=== PATIENT | male | born 1950 | race Caucasian/White ===

== ENCOUNTER → 2018-01-07 10:16 | Outpatient (CLI) | payer MEDICARE, OTHER, SELFPAY ==
[2018-01-07 12:47] LABS: Vitamin B12 763 pg/mL (211-911)
[2018-01-07 12:52] LABS: ALB/GLOB Ratio 1.2 RATIO (0.9-2.4); AST(SGOT) 25 U/L (15-37); Alanine Aminotransfer ALT/SGPT 57 U/L (16-61); Alkaline Phosphatase 71 U/L (45-117); Anion Gap 7 (5-15); BUN 18 mg/dL (7-18); BUN/Creat Ratio 15.7 RATIO (10-20); Chloride 102 mmol/L (98-107); Cholesterol 136 mg/dL (200); Creatinine, Serum 1.15 mg/dL (0.70-1.30); EST Glomerular Filtration Rate 68 mL/min (>60); Est Glom Filt Rate - Afr Amer 82 mL/min (>60); Ferritin 52 ng/mL (26-388); Globulin 3.4 g/dL (2.2-4.2); Glucose 114 mg/dL (74-106); High Density Lipoprotein 55 mg/dL; Potassium 4.1 mmol/L (3.5-5.1); Protein, Total 7.4 g/dL (6.4-8.2); Sodium Level 139 mmol/L (136-145); Thyroid Stim Hormone (TSH) 2.23 uIU/mL (0.358-3.74); Triglycerides 64 mg/dL; Very Low Density Lipoprotein 13 mg/dL (5-40)
== END ==
PROVIDERS: Visit Provider Internal Medicine Endocrinology, Diabetes & Metabolism
DX: E03.8 Other specified hypothyroidism (principal); E61.1 Iron deficiency; E78.2 Mixed hyperlipidemia; D51.3 Other dietary vitamin B12 deficiency anemia
CPT/HCPCS: 36415; 80053; 80061; 82607; 82728; 84443

== ENCOUNTER → 2018-07-23 08:51 | Outpatient (CLI) | payer MEDICARE, OTHER, SELFPAY ==
[2018-07-23 10:25] LABS: ALB/GLOB Ratio 1.3 RATIO (0.9-2.4); AST(SGOT) 26 U/L (15-37); Alanine Aminotransfer ALT/SGPT 56 U/L (16-61); Albumin, Serum 3.8 g/dL (3.2-5.0); Alkaline Phosphatase 59 U/L (45-117); Anion Gap 9 (5-15); BUN 18 mg/dL (7-18); BUN/Creat Ratio 14.3 RATIO (10-20); Calcium,Total 8.8 mg/dL (8.5-10.1); Chloride 105 mmol/L (98-107); Cholesterol 123 mg/dL (200); Creatinine, Serum 1.26 mg/dL (0.70-1.30); EST Glomerular Filtration Rate 61 mL/min (>60); Est Glom Filt Rate - Afr Amer 74 mL/min (>60); Glucose 115 mg/dL (74-106); High Density Lipoprotein 46 mg/dL; Potassium 4.2 mmol/L (3.5-5.1); Protein, Total 6.8 g/dL (6.4-8.2); Sodium Level 141 mmol/L (136-145); Thyroid Stim Hormone (TSH) 1.59 uIU/mL (0.358-3.74); Triglycerides 87 mg/dL; Very Low Density Lipoprotein 17 mg/dL (5-40)
[2018-07-24 08:38] LABS: Vitamin D,25 Hydroxy 29.6 ng/mL (29.95-100.01)
== END ==
PROVIDERS: Visit Provider Internal Medicine Endocrinology, Diabetes & Metabolism
DX: E03.8 Other specified hypothyroidism (principal); E55.9 Vitamin D deficiency, unspecified; E78.2 Mixed hyperlipidemia
CPT/HCPCS: 36415; 80053; 80061; 82306; 84443

== ENCOUNTER → 2018-08-08 10:00 | Outpatient (CLI) | payer MEDICARE, OTHER, SELFPAY ==
[2018-08-08 12:10] LABS: Magnesium 2.2 mg/dL (1.6-2.6)
[2018-08-08 12:24] LABS: Vitamin B12 809 pg/mL (211-911)
== END ==
PROVIDERS: Visit Provider Internal Medicine Endocrinology, Diabetes & Metabolism
DX: E83.42 Hypomagnesemia (principal); D51.3 Other dietary vitamin B12 deficiency anemia
CPT/HCPCS: 36415; 82607; 83735

== ENCOUNTER → 2018-12-05 08:40 | Outpatient (CLI) | payer MEDICARE, OTHER, SELFPAY ==
[2018-12-05 10:20] LABS: Vitamin B12 746 pg/mL (211-911); Vitamin D,25 Hydroxy 32.2 ng/mL (29.95-100.01)
[2018-12-05 10:31] LABS: ALB/GLOB Ratio 1.4 RATIO (0.9-2.4); AST(SGOT) 31 U/L (15-37); Alanine Aminotransfer ALT/SGPT 72 U/L (16-61); Albumin, Serum 4.1 g/dL (3.2-5.0); Alkaline Phosphatase 69 U/L (45-117); Anion Gap 8 (5-15); BUN 23 mg/dL (7-18); BUN/Creat Ratio 17.8 RATIO (10-20); Calcium,Total 9.1 mg/dL (8.5-10.1); Chloride 104 mmol/L (98-107); Creatinine, Serum 1.29 mg/dL (0.70-1.30); EST Glomerular Filtration Rate 59 mL/min (>60); Est Glom Filt Rate - Afr Amer 72 mL/min (>60); Glucose 116 mg/dL (74-106); Magnesium 1.9 mg/dL (1.6-2.6); Potassium 4.1 mmol/L (3.5-5.1); Protein, Total 7.1 g/dL (6.4-8.2); Sodium Level 140 mmol/L (136-145); Thyroid Stim Hormone (TSH) 3.21 uIU/mL (0.358-3.74)
--- OUTSIDE RECORDS SUMMARY | 2019-02-08 21:56 | XMS RPT_ITS ---
:1950 Author Organization OHIP Care Team Providers Name Role Phone BALTAZAR DAMONIN Attending Unavailable WIETECHA, JOSÉ Referring Unavailable Primay Care Physicia, No Primary Care Unavailable WIETECHA, JOSÉ Attending Unavailable WIETECHA, JOSÉ Referring Unavailable Primay Care Physicia, No Primary Care Unavailable WIETECHA, JOSÉ Attending Unavailable WIETECHA, JOSÉ Referring Unavailable Primay Care Physicia, No Primary Care Unavailable WIETECHA, JOSÉ Attending Unavailable WIETECHA, JOSÉ Referring Unavailable Primay Care Physicia, No Primary Care Unavailable PROBLEMS PROBLEMS DATE TYPE CONDITION / CODE ATTENDING STATUS SOURCE 12/05/2018 Unknown E03.8 - Other WIETECHA, JOSÉ Active [place] specified Community hypothyroidism / Hospital E03.8(ICD-10) Repository 12/05/2018 Unknown E55.9 - Vitamin D WIETECHA, JOSÉ Active [place] deficiency, Community unspecified / Hospital E55.9(ICD-10) Repository 08/08/2018 Unknown E83.42 - WIETECHA, JOSÉ Active [place] Hypomagnesemia / Community E83.42(ICD-10) Hospital Repository 08/08/2018 Unknown D51.3 - Other WIETECHA, JOSÉ Active [place] dietary vitamin B12 Community deficiency anemia / Hospital D51.3(ICD-10) Repository 01/07/2018 Unknown E61.1 - Iron JOSÉ DAMON Active [place] deficiency / Community E61.1(ICD-10) Hospital Repository PROCEDURES PROCEDURES No Procedure Records FoundRESULTS RESULTS VITAMIN B12 Collected: 12/05/2018 Status: F Source: [place] 8:46 AM [facility] REPOSITORY TYPE CODE TESTS RESULT OUT OF RANGE REFERENCE UNITS LAB L503.0105 211-911 pg/mL Normal Vitamin B12 746 Performed By: #### L503.0105, L506.1000 #### [facility] [address] [place], [address] VITAMIN D,25 HYDROXY Collected: 12/05/2018 Status: F Source: [place] 8:46 AM [facility] REPOSITORY TYPE CODE TESTS RESULT OUT OF RANGE REFERENCE UNITS LAB L506.1000 29.95-100.01 ng/mL Normal Vitamin D 32.2 25-OH Result Comment: Vitamin D 25(OH) Status Range Deficiency <20 ng/mL (50nmol/L) Insuffciency 20 - 30 ng/mL (50 - 75 nmol/L) Sufficiency 30 - 100 ng/mL (75 - 250 nmol/L) Toxicity >100 ng/mL (>250 nmol/L) Performed By: #### L503.0105, L506.1000 #### [facility] [address] [place], [address] COMPREHENSIVE METABOLIC Collected: 12/05/2018 Status: F Source: [place] PROFIL 8:46 AM [facility] REPOSITORY TYPE CODE TESTS RESULT OUT OF RANGE REFERENCE UNITS LAB L501.0100 74-106 mg/dL High GLU 116 Result Comment: Fasting Glucose result from 100 to 125 mg/dL suggests IMPAIRED HOMEOSTASIS per A.D.A. criteria. Please note revised GLUCOSE reference range effective 2017. LAB L501.1000 7-18 mg/dL High BUN 23 LAB L501.1100 0.70-1.30 mg/dL Normal CREAT,SERUM 1.29 Result Comment: The validity of the calculated GFR AND GFRAA in patients over 70 years has not been determined. Clinical correlation is essential. LAB L501.1110 >60 mL/min Low EST GFR 59 Result Comment: Non- GFR Calc LAB L501.1115 >60 mL/min Normal EST GFR - AA 72 Result Comment: GFR Calc LAB L501.1300 10-20 RATIO Normal BUN/CRE 17.8 LAB L501.1500 6.4-8.2 g/dL T Normal PROT 7.1 LAB L501.1800 3.2-5.0 g/dL Normal ALB 4.1 LAB L501.1950 2.2-4.2 g/dL Normal GLOB 3.0 LAB L501.2000 0.9-2.4 RATIO Normal A/G 1.4 LAB L501.2200 8.5-10.1 mg/dL CA Normal 9.1 LAB L501.4100 15-37 U/L Normal AST 31 LAB L501.4305 45-117 U/L Normal ALK P 69 LAB L501.4405 16-61 U/L High ALT 72 LAB L501.4600 0.20-1.00 mg/dL T Normal BILI 0.80 LAB L501.5300 136-145 mmol/L NA Normal 140 LAB L501.5600 3.5-5.1 mmol/L K Normal 4.1 LAB L501.5900 98-107 mmol/L CL Normal 104 LAB L501.6100 21.0-32.0 mmol/L Normal CO2 28.0 LAB L501.6200 5-15 Normal GAP 8 Performed By: #### L500.4050, L501.5200, L501.9520 #### [facility] [address] [facility] [place], [place], [id number] MAGNESIUM Collected: 12/05/2018 Status: F Source: [place] 8:46 AM [facility] REPOSITORY TYPE CODE TESTS RESULT OUT OF RANGE REFERENCE UNITS LAB L501.5200 1.6-2.6 mg/dL Normal MG 1.9 Performed By: #### L500.4050, L501.5200, L501.9520 #### [facility] [address] [place], [address] THYROID STIM HORMONE Collected: 12/05/2018 Status: F Source: [place] (TSH) 8:46 AM [facility] REPOSITORY TYPE CODE TESTS RESULT OUT OF RANGE REFERENCE UNITS LAB L501.9520 0.358-3.74 uIU/mL Normal TSH 3.21 Performed By: #### L500.4050, L501.5200, L501.9520 #### [facility] [address] [place], [address] MAGNESIUM Collected: 08/08/2018 Status: F Source: [place] 10:08 AM [facility] REPOSITORY TYPE CODE TESTS RESULT OUT OF RANGE REFERENCE UNITS LAB L501.5200 1.6-2.6 mg/dL Normal MG 2.2 Performed By: #### L501.5200 #### [facility] [address] [place], [address] VITAMIN B12 Collected: 08/08/2018 Status: F Source: [place] 10:08 AM [facility] REPOSITORY TYPE CODE TESTS RESULT OUT OF RANGE REFERENCE UNITS LAB L503.0105 211-911 pg/mL Normal Vitamin B12 809 Performed By: #### L503.0105 #### [facility] [address] [place], [address] COMPREHENSIVE METABOLIC Collected: 07/23/2018 Status: F Source: [place] 9:00 AM [facility] REPOSITORY TYPE CODE TESTS RESULT OUT OF RANGE REFERENCE UNITS LAB L501.0100 74-106 mg/dL High GLU 115 Result Comment: Fasting Glucose result from 100 to 125 mg/dL suggests IMPAIRED HOMEOSTASIS per A.D.A. criteria. Please note revised GLUCOSE reference range effective 2017. LAB L501.1000 7-18 mg/dL Normal BUN 18 LAB L501.1100 0.70-1.30 mg/dL Normal CREAT,SERUM 1.26 Result Comment: The validity of the calculated GFR AND GFRAA in patients over 70 years has not been determined. Clinical correlation is essential. LAB L501.1110 >60 mL/min Normal EST GFR 61 Result Comment: Non- GFR Calc LAB L501.1115 >60 mL/min Normal EST GFR - AA 74 Result Comment: GFR Calc LAB L501.1300 10-20 RATIO Normal BUN/CRE 14.3 LAB L501.1500 6.4-8.2 g/dL T Normal PROT 6.8 LAB L501.1800 3.2-5.0 g/dL Normal ALB 3.8 LAB L501.1950 2.2-4.2 g/dL Normal GLOB 3.0 LAB L501.2000 0.9-2.4 RATIO Normal A/G 1.3 LAB L501.2200 8.5-10.1 mg/dL CA Normal 8.8 LAB L501.4100 15-37 U/L Normal AST 26 LAB L501.4305 45-117 U/L Normal ALK P 59 LAB L501.4405 16-61 U/L Normal ALT 56 LAB L501.4600 0.20-1.00 mg/dL T Normal BILI 0.60 LAB L501.5300 136-145 mmol/L NA Normal 141 LAB L501.5600 3.5-5.1 mmol/L K Normal 4.2 LAB L501.5900 98-107 mmol/L CL Normal 105 LAB L501.6100 21.0-32.0 mmol/L Normal CO2 27.0 LAB L501.6200 5-15 Normal GAP 9 Performed By: #### L500.4050, L500.4100, L501.9520 #### [facility] [address] [place], [place], [address] LIPID PROFILE Collected: 07/23/2018 Status: F Source: [place] 9:00 AM [facility] REPOSITORY TYPE CODE TESTS RESULT OUT OF RANGE REFERENCE UNITS LAB L501.4900 200 mg/dL Normal CHOL 123 Result Comment: <200 mg/dL Desirable 200-240 mg/dL Borderline >240 mg/dL High Risk LAB L501.5000 mg/dL Normal TRIG 87 Result Comment: The drugs N-Acetylcysteine and Metamizole may falsely depress this assay. Serum Triglycerides Reference Interval Normal <150 mg/dL Borderline high 150 - 199 mg/dL High 200 - 499 mg/dL Very High > or = 500 mg/dL LAB L501.6400 mg/dL Normal HDL 46 Result Comment: The drugs N-Acetylcysteine and Metamizole may falsely depress this assay. Reference Range HDL <40 mg/dL Low HDL Cholesterol HDL >or= 60 mg/dL High HDL Cholesterol LAB L501.6500 0-130 mg/dL Normal LDL 60 LAB L501.6600 5-40 mg/dL Normal VLDL 17 Performed By: #### L500.4050, L500.4100, L501.9520 #### [facility] [address] [place], [address] THYROID STIM HORMONE Collected: 07/23/2018 Status: F Source: [place] (TSH) 9:00 AM [facility] REPOSITORY TYPE CODE TESTS RESULT OUT OF RANGE REFERENCE UNITS LAB L501.9520 0.358-3.74 uIU/mL Normal TSH 1.59 Performed By: #### L500.4050, L500.4100, L501.9520 #### [facility] [address] [place], [address] VITAMIN D,25 HYDROXY Collected: 07/23/2018 Status: F Source: [place] 9:00 AM [facility] REPOSITORY TYPE CODE TESTS RESULT OUT OF REFERENCE UNITS RANGE LAB L506.1000 29.95-100.01 ng/mL Low Vitamin D 29.6 25-OH Result Comment: Vitamin D 25(OH) Status Range Deficiency <20 ng/mL (50nmol/L) Insuffciency 20 - 30 ng/mL (50 - 75 nmol/L) Sufficiency 30 - 100 ng/mL (75 - 250 nmol/L) Toxicity >100 ng/mL (>250 nmol/L) Performed By: #### L506.1000 #### [facility] [address] [place], [address] PROGRESS Observed: 03/29/2018 Status: COMPLETED Source: [place] [facility] O ID: [id number] Author: Inés Alanis (Harvey) Service: (none) Author Type: Physician Temperature Regulator Pyrometer Type: Progress Notes Filed: 03/29/2018 12:18 PM Note Text: Subjective HPI Pt present with a rash on both eyelids for 3 days with itchiness. He has had some twitching eyelids bilaterally as well. He also has had a rash on buttock area. He has been using some topical OTC psoriasis medication as he does have a history of this. This helped minimally. The eyelids have been very itchy and he has been scratching them. Review of Systems Eyes: Eyelid twitching Skin: Positive for rash. All other systems reviewed and are negative. PAST MEDICAL HISTORY Diagnosis Date - Acute duodenal ulcer with hemorrhage and perforation - Throat cancer (HCC) left radical neck, base of tongue, post op radiation Current Outpatient Prescriptions: atorvastatin (LIPITOR) 20 mg tablet Take 20 mg by mouth once daily. Disp: Rfl: metformin/AA 7/mjqq499/choline (ANRWMEBME-KE3-[id number]-CHOLIN ORAL) Take by mouth. Disp: Rfl: levothyroxine (SYNTHROID) 100 mcg tablet Take 100 mcg by mouth once daily. Disp: Rfl: fluticasone (FLONASE) 50 mcg/actuation nasal spray Use 1 [place] in each nostril once daily. Disp: 16 g Rfl: 2 albuterol HFA (PROVENTIL HFA, VENTOLIN HFA) 90 mcg/actuation inhaler Inhale 2 Puffs as instructed every 6 hours as needed for Wheezing/Shortness of Breath. Disp: 1 Inhaler Rfl: 2 predniSONE (DELTASONE) 20 mg tablet Take 2 tablet by mouth daily for 4 days. Disp: 8 tablet Rfl: 0 codeine-guaiFENesin (ROBITUSSIN AC) 10-100 mg/5 mL syrup Take 5-10 mL by mouth three times daily as needed for Cough or Cold/Allergy Symptoms. May cause drowsiness. Disp: 120 mL Rfl: 0 meclizine (ANTIVERT) 12.5 mg tab Take 1-2 tabs every 6-8 hrs as needed Disp: 40 tablet Rfl: 0 MULTIVITAMIN TAB Take one(1) tablet daily. Disp: Rfl: 0 acetaminophen(TYLENOL EXTRA STRENGTH 500 MG TAB) as necessary Disp: Rfl: 0 No current facility-administered medications for this visit. PAST SURGICAL HISTORY Procedure Laterality Date - PAST SURGICAL HISTORY OF 2006 left radical neck dissection - REMOVAL EXTERNAL EAR,PARTIAL 04/21/06 Right ear lobe lesion - REPAIR ING HERNIA,5+Y/O,REDUCIBL 10/22/13 left inguinal hernia No family history on file. Social History Substance Use Topics - Smoking status: Never Smoker - Smokeless tobacco: Never Used - Alcohol use No BP 138/84 Pulse 76 Temp 36.3 ?C (97.3 ?F) (Tympanic) Resp 16 Wt 77.7 kg (171 lb 3.2 oz) BMI 24.56 kg/m? Objective Physical Exam Constitutional: He is oriented to person, place, and time and well-developed, well-nourished, and in no distress. HENT: Head: Normocephalic and atraumatic. Pt has bilateral eyelid irritation and redness, worse on the right. Minimal swelling. Consistent with eczema. Eyes: No eyelid twitching observed Neck: Normal range of motion. Neck supple. Cardiovascular: Normal rate, regular rhythm and normal heart sounds. Pulmonary/Chest: Effort normal and breath sounds normal. Lymphadenopathy: He has no cervical adenopathy. Neurological: He is alert and oriented to person, place, and time. Skin: Skin is warm and dry. Psychiatric: Affect and judgment normal. Nursing note and vitals reviewed. ASSESSMENT/PLAN: 1. Eczema, unspecified type - ICD9: 692.9, ICD10: L30.9 - Oral Steriod tx -Prednisone burst. Discussed using benadryl for itch. Avoided topical because on eyelid. - discussed skin care of rash - follow up if symptoms persist or worsen. SUZANNA Pacheco Observed: 03/29/2018 Status: COMPLETED Source: [place] 9[facility]45 AM [facility] Office Visit (WSTR) FRANCISCO BRIGGS ([id number]) 1950 M Date Time Provider Department 03/29/18 9:45 AM INÉS ALANIS) WSTR During your visit today, we recorded the following information about you: Temperature Pulse Respiration Blood pressure 97.3 degrees 76/minute 16/minute 138/84 Weight 77.7 kg Inés Alanis) 03/29/2018 12:18 PM Signed Subjective HPI Pt present with a rash on both eyelids for 3 days with itchiness. He has had some twitching eyelids bilaterally as well. He also has had a rash on buttock area. He has been using some topical OTC psoriasis medication as he does have a history of this. This helped minimally. The eyelids have been very itchy and he has been scratching them. Review of Systems Eyes: Eyelid twitching Skin: Positive for rash. All other systems reviewed and are negative. PAST MEDICAL HISTORY Diagnosis Date - Acute duodenal ulcer with hemorrhage and perforation - Throat cancer (HCC) left radical neck, base of tongue, post op radiation Current Outpatient Prescriptions: atorvastatin (LIPITOR) 20 mg tablet Take 20 mg by mouth once daily. Disp: Rfl: metformin/AA 7/pcfa377/choline ([id number]-CHOLIN ORAL) Take by mouth. Disp: Rfl: levothyroxine (SYNTHROID) 100 mcg tablet Take 100 mcg by mouth once daily. Disp: Rfl: fluticasone (FLONASE) 50 mcg/actuation nasal spray Use 1 [place] in each nostril once daily. Disp: 16 g Rfl: 2 albuterol HFA (PROVENTIL HFA, VENTOLIN HFA) 90 mcg/actuation inhaler Inhale 2 Puffs as instructed every 6 hours as needed for Wheezing/Shortness of Breath. Disp: 1 Inhaler Rfl: 2 predniSONE (DELTASONE) 20 mg tablet Take 2 tablet by mouth daily for 4 days. Disp: 8 tablet Rfl: 0 codeine-guaiFENesin (ROBITUSSIN AC) 10-100 mg/5 mL syrup Take 5-10 mL by mouth three times daily as needed for Cough or Cold/Allergy Symptoms. May cause drowsiness. Disp: 120 mL Rfl: 0 meclizine (ANTIVERT) 12.5 mg tab Take 1-2 tabs every 6-8 hrs as needed Disp: 40 tablet Rfl: 0 MULTIVITAMIN TAB Take one(1) tablet daily. Disp: Rfl: 0 acetaminophen(TYLENOL EXTRA STRENGTH 500 MG TAB) as necessary Disp: Rfl: 0 No current facility-administered medications for this visit. PAST SURGICAL HISTORY Procedure Laterality Date - PAST SURGICAL HISTORY OF 2006 left radical neck dissection - REMOVAL EXTERNAL EAR,PARTIAL 04/21/06 Right ear lobe lesion - REPAIR ING HERNIA,5+Y/O,REDUCIBL 10/22/13 left inguinal hernia No family history on file. Social History Substance Use Topics - Smoking status: Never Smoker - Smokeless tobacco: Never Used - Alcohol use No BP 138/84 Pulse 76 Temp 36.3 ?C (97.3 ?F) (Tympanic) Resp 16 Wt 77.7 kg (171 lb 3.2 oz) BMI 24.56 kg/m? Objective Physical Exam Constitutional: He is oriented to person, place, and time and well-developed, well-nourished, and in no distress. HENT: Head: Normocephalic and atraumatic. Pt has bilateral eyelid irritation and redness, worse on the right. Minimal swelling. Consistent with eczema. Eyes: No eyelid twitching observed Neck: Normal range of motion. Neck supple. Cardiovascular: Normal rate, regular rhythm and normal heart sounds. Pulmonary/Chest: Effort normal and breath sounds normal. Lymphadenopathy: He has no cervical adenopathy. Neurological: He is alert and oriented to person, place, and time. Skin: Skin is warm and dry. Psychiatric: Affect and judgment normal. Nursing note and vitals reviewed. ASSESSMENT/PLAN: 1. Eczema, unspecified type - ICD9: 692.9, ICD10: L30.9 - Oral Steriod tx -Prednisone burst. Discussed using benadryl for itch. Avoided topical because on eyelid. - discussed skin care of rash - follow up if symptoms persist or worsen. Inés Alanis PA-C Referring Provider: SELF [200] Allergies As of Date: 03/29/2018 (No Known Allergies) Date Reviewed: 03/29/2018 Reviewed by: Franchesca Padron LPN - Fully Assessed Reason for Visit: right eye irritation and rash [Other] Cmt: right eye lid keeps flickering for several weeks and now he has a rash above it-left eye flickered a llittle also-he has a rash on his bottom for over 1 month Primary Visit Diagnosis:Eczema, unspecified type [L30.9] Order(s):predniSONE (DELTASONE) 20 mg tabletTake 1 tablet by mouth twice daily for 5 days.Disp: 10 tabletRfl: 0 loratadine (CLARITIN) 10 mg tabletTake 1 tablet by mouth once daily.Disp: 30 tabletRfl: 0 Prescriptions as of 03/29/2018 Sig: ATORVASTATIN 20 MG TABLET Take 20 mg by mouth once windy* JRIQRNLIQ-NI1-TGHONH153-CHOLI* Take by mouth. LEVOTHYROXINE 100 MCG TABLET Take 100 mcg by mouth once da* PREDNISONE 20 MG TABLET Take 1 tablet by mouth twice * LORATADINE 10 MG TABLET Take 1 tablet by mouth once d* FLUTICASONE 50 MCG/ACTUATION * Use 1 [place] in each nostril o* ALBUTEROL SULFATE HFA 90 MCG/* Inhale 2 Puffs as instructed * PREDNISONE 20 MG TABLET Take 2 tablet by mouth daily * CODEINE 10 MG-GUAIFENESIN 100* Take 5-10 mL by mouth three t* MECLIZINE 12.5 MG TABLET Take 1-2 tabs every 6- 8 hrs a* * MULTIVITAMIN TABLET Take one(1) tablet daily. 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 LORATADINE 10 MG TABLET 30 t* 0 03/29/2018 Route: ORAL Sig: Take 1 tablet by mouth once daily. Encounter Status:Closed by INÉS ALANIS PA-C on 03/29/18 VITAMIN B12 Collected: 01/07/2018 Status: F Source: [place] 10:26 AM [facility] REPOSITORY TYPE CODE TESTS RESULT OUT OF RANGE REFERENCE UNITS LAB L503.0105 211-911 pg/mL Normal Vitamin B12 763 Performed By: #### L503.0105 #### [facility] [address] [place], [address] COMPREHENSIVE METABOLIC Collected: 01/07/2018 Status: F Source: [place] [facility] 10:26 AM [facility] REPOSITORY TYPE CODE TESTS RESULT OUT OF RANGE REFERENCE UNITS LAB L501.0100 74-106 mg/dL High GLU 114 Result Comment: Fasting Glucose result from 100 to 125 mg/dL suggests IMPAIRED HOMEOSTASIS per A.D.A. criteria. Please note revised GLUCOSE reference range effective 2017. LAB L501.1000 7-18 mg/dL Normal BUN 18 LAB L501.1100 0.70-1.30 mg/dL Normal CREAT,SERUM 1.15 Result Comment: The validity of the calculated GFR AND GFRAA in patients over 70 years has not been determined. Clinical correlation is essential. LAB L501.1110 >60 mL/min Normal EST GFR 68 Result Comment: Non- GFR Calc LAB L501.1115 >60 mL/min Normal EST GFR - AA 82 Result Comment: GFR Calc LAB L501.1300 10-20 RATIO Normal BUN/CRE 15.7 LAB L501.1500 6.4-8.2 g/dL T Normal PROT 7.4 LAB L501.1800 3.2-5.0 g/dL Normal ALB 4.0 LAB L501.1950 2.2-4.2 g/dL Normal GLOB 3.4 LAB L501.2000 0.9-2.4 RATIO Normal A/G 1.2 LAB L501.2200 8.5-10.1 mg/dL CA Normal 9.0 LAB L501.4100 15-37 U/L Normal AST 25 LAB L501.4305 45-117 U/L Normal ALK P 71 LAB L501.4405 16-61 U/L Normal ALT 57 Result Comment: Please note revised ALT reference range effective 2017. LAB L501.4600 0.20-1.00 mg/dL Normal T BILI 0.90 LAB L501.5300 136-145 mmol/L Normal NA 139 LAB L501.5600 3.5-5.1 mmol/L Normal K 4.1 LAB L501.5900 98-107 mmol/L Normal CL 102 LAB L501.6100 21.0-32.0 mmol/L Normal CO2 30.0 LAB L501.6200 5-15 Normal GAP 7 Performed By: #### L500.4050, L500.4100, L501.9520, L503.6550 #### [facility] [address] [place], [place], [id number] LIPID PROFILE Collected: 01/07/2018 Status: F Source: [place] 10:26 AM [facility] REPOSITORY TYPE CODE TESTS RESULT OUT OF RANGE REFERENCE UNITS LAB L501.4900 200 mg/dL Normal CHOL 136 Result Comment: <200 mg/dL Desirable 200-240 mg/dL Borderline >240 mg/dL High Risk LAB L501.5000 mg/dL Normal TRIG 64 Result Comment: The drugs N-Acetylcysteine and Metamizole may falsely depress this assay. Serum Triglycerides Reference Interval Normal <150 mg/dL Borderline high 150 - 199 mg/dL High 200 - 499 mg/dL Very High > or = 500 mg/dL LAB L501.6400 mg/dL Normal HDL 55 Result Comment: The drugs N-Acetylcysteine and Metamizole may falsely depress this assay. Reference Range HDL <40 mg/dL Low HDL Cholesterol HDL >or= 60 mg/dL High HDL Cholesterol LAB L501.6500 0-130 mg/dL Normal LDL 68 LAB L501.6600 5-40 mg/dL Normal VLDL 13 Performed By: #### L500.4050, L500.4100, L501.9520, L503.6550 #### [facility] [address] [place], [place], [id number] THYROID STIM HORMONE Collected: 01/07/2018 Status: F Source: [place] (TSH) 10:26 AM [facility] REPOSITORY TYPE CODE TESTS RESULT OUT OF RANGE REFERENCE UNITS LAB L501.9520 0.358-3.74 uIU/mL Normal TSH 2.23 Performed By: #### L500.4050, L500.4100, L501.9520, L503.6550 #### [facility] [address] [place], [place], [id number] FERRITIN Collected: 01/07/2018 Status: F Source: [place] 10:26 AM [facility] REPOSITORY TYPE CODE TESTS RESULT OUT OF RANGE REFERENCE UNITS LAB L503.6550 26-388 ng/mL Normal FERRITIN 52 Performed By: #### L500.4050, L500.4100, L501.9520, L503.6550 #### [facility] [address] [place], [place], [address] ALLERGIES ALLERGIES DATE TYPE / CODE NAME / CODE REACTION SEVERITY SOURCE 10/15/2013 Drug No Known Unknown [facility] Allergy/416 Allergies/A67019 Hospital 481467(SNOM 0388(RXNORM) Repository ED CT) Drug NO KNOWN [facility] Class/31006 ALLERGIES [place] 1003(SNOMED Repository CT) ENCOUNTERS ENCOUNTERS ADMIT/DISCHARGE ACCOUNT ADMITTING ENCOUNTER LOCATION SOURCE NUMBER CLASS 12/05/2018 [id number] [facility] ing:MTLAB Repository 08/08/2018 [id number] [facility] ing:MTLAB Repository 07/23/2018 [id number] [facility] ing:MTLAB Repository 03/29/2018/04/01/20 [id number] Ambulatory [address] Repository 01/07/2018 [id number] [facility] ing:MTLAB Repository PAYERS PAYERS ENCOUNTER GUARANTOR PAYER SUBSCRIBER SOURCE 12/05/2018 FR[place] [id number] Insurance:MEDICARE HIGGSDOB: [facility]ly [facility] [place] [facility] [id number]: Repository [address]Ozg: [phone] [id number] [phone] () Date:2018-12-05 12/05/2018 Secondary [place] [facility] HIGGSDOB: Community SUPPLEMENT [id number] Number: [id number] Date:[id number] AN [facility]P [employer] INSP[address] [place] [id number]: 12/05/2018 Tertiary NOT GIVENUNK [place] Insurance:SELF PAY [facility] Number: Effective Repository Date:2018-12-05 08/08/2018 FRANCISCO [place] [id number] Insurance:MEDICARE HIGGSDOB: [facility]ly [facility] [place] A [facility] [id number] Number: Repository [id number]: [phone] [id number] [phone] () Date:2018-08-08 08/08/2018 Secondary FRANCISCO R [place] Insurance:JULISSA KELLYB: Community SUPPLEMENT [id number] Repository Number: [id number] Date:[id number] AN USP [address] [address], [place] [address]DZ: 08/08/2018 Tertiary NOT GIVENUNK [place] Insurance:SELF PAY [facility] Number: Effective Repository Date:2018-08-08 07/23/2018 FRANCISCO R Primary FRANCISCO R [place] [id number] Insurance:MEDICARE HIGGSDOB: Community [place] [facility] [id number] Number: Repository [id number]: [phone] [id number] [phone] () Date:2018-07-23 07/23/2018 Secondary FRANCISCO R Eliz Insurance:JULISSA BRIGGSDOB: Community SUPPLE[id number] Number: [id number] Date:7666-03-74YGPFLP AN [place] [address] [address]MB: 07/23/2018 Tertiary NOT GIVENUNK Eliz Insurance:SELF PAY [facility] Number: Effective Repository Date:2018-07-23 01/07/2018 Francisco R Primary Francisco R Eliz [id number] Insurance:MEDICARE HiggsDOB: Community [place] PART A [facility] [id number] Number: Repository [address]Can: [id number] [phone] Date:2018-01-07 () 01/07/2018 Secondary BERTHA LAWRENCEROSALINDAB: Eliz Insurance:JULISSA [facility] [id number] Number: [id number] Date:0582-15-33IDSXJA AN USP [address] [address], [place] [address]ZH: 01/07/2018 Tertiary NOT GIVENUNK Eliz Insurance:SELF [facility]Y [facility] Effective Repository Date:2018-01-07
--- OUTSIDE RECORDS SUMMARY | 2019-02-08 21:56 | XMS RPT_ITS ---
:1950 Author Organization [facility] Address [facility] [place] [address] Phone Care Team Providers Name Role Phone La Nena AUGUSTIN, Paul Sloan Unavailable Reason for Visit Reason For Visit Description Start Date New - 1st visit with practice Preliminary reason for visit data, not yet signed by the author as of right thumb finger Preliminary reason for visit data, not yet signed by the author as of Chief Complaint Chief Complaint Description Start Date right thumb finger Preliminary chief complaint data, not yet signed by the author as of Instructions Instruction Description Start Date Completed Plan of Care Type Date Detail Appointment 03:45 PM Paul Deutsch MD, [address] [facility] [address], [place], [address], Medications Medication Instructions Start Stop Generic Name NDC Provider Date Date METFORMIN HCL ER 1 tablet daily / METFORMIN HCL [id number] Chela (MOD) 500 MG 18 Brennan [id number] STOKER ERECTOR LEVOTHYROXINE 1 tablet daily / LEVOTHYROXINE [id number] Chela SODIUM 125 MCG 18 SODIUM Brennan TABS STOKER ERECTOR ATORVASTATIN 1 tablet daily / ATORVASTATIN [id number] Chela CALCIUM 20 MG 18 CALCIUM Brennan TABS STOKER ERECTOR Conditions or Problems Problem Name Problem Onset Status Entry Provider Comment Standard Annotate Code Date Date Description Unilateral M18.11 Active Paul Sloan 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 Vital Signs Date Name Value Unit Description BMI (Body Mass 24.99 kg/m2 Body Mass Index Index) [Ratio] Preliminary vital sign data, not yet signed by the author as of BP Diastolic 77 mm[Hg] blood pressure, diastolic Preliminary vital sign data, not yet signed by the author as of BP Systolic 130 mm[Hg] blood pressure, systolic Preliminary vital sign data, not yet signed by the author as of Heart Rate 66 /min pulse rate E&M Preliminary vital sign data, not yet signed by the author as of Height 70.345556 [in_us] height E&M Preliminary vital sign data, not yet signed by the author as of Height 179 cm height in centimeters E&M Preliminary vital sign data, not yet signed by the author as of Weight Measured 176 [lb_av] weight E&M Preliminary vital sign data, not yet signed by the author as of Weight Measured 80 kg weight in kilograms E&M Preliminary vital sign data, not yet signed by the author as of Results Date Name Value Unit Range Flag Description Office Visit: New - 1st visit with practice, Rm: MEDS REVIEW Done Documentation of current medications (procedure) Preliminary observation data, not yet signed by the author as of Preliminary observation data, not yet signed by the author as of Clinical Summary: HMSPatientID BOP account number Clinical Lists Update: Preload Extended SMOK STATUS never smoker Tobacco smoking status NHIS Clinical Summary: Data Submitted by Patient in Portal DEP EXERCISE No data entered by patient, exercise history DEP DRUG USE No data entered by patient, drug (of abuse) use 3+ETOHDAILY less than 1 drink consumes three or per day more drinks of alcohol (beer, wine, liquor) daily or almost daily ETOHPERFRM beer adl form etoh alcohol performance DEP ETOH USE Yes data entered by patient, alcohol (ethanol or ETOH) use DEP SH CSMO never smoker data entered by patient, social history, current smoker [place] 2 floors housing unit size (asthma environmental history, housing) (from single family to don't know) [place] house Housing Type: apartment, house, alf, trailer, none #DEP CHLDRN No Number of dependent children 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 data entered by patient, social history, marital status 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 data 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 by patient, Employer Name SISTER A/D My sister(s)' sister of health history is patient(s) alive unknown or DEPFHPATUNKN My father's health data entered by history is unknown patient, paternal family history unknown FATHER A/D father of patient is alive or MOTHER A/D Alive mother of patient is alive or WEBSURGCOM throat cancer Web entered /stomach ulcers surgical history comments DEP SURGERY Knee surgery other Data entered by patient, history of past surgeries DEPADDLPROB thyroid / past Data entered by throat cancer patient, additional medical problems DEP PMH Diabetes - data entered by non-insulin patient, past dependent, High medical history cholesterol RLATNSHPINFR Relationship of informant to patient DEP ALG LIST I don't have any Data entered by drug allergies.,I patient, allergy don't have any list food allergies.,I don't have any environmental allergies. DEP MED LIST Atorvastatin 20 mg Data entered by Tab, 1 times per patient, day,Levothyroxine medication list 0.125 mg Tab, 1 times per day,Metformin 500 mg Tab Er, 1 times per day Procedures Code Procedure Name Date Entry Date CPT-93025 XR HAND 3+ VWS-RT G8730 Pain assessment documented as positive - follow-up documented G8427 Current medications documented 1036F Tobacco screening was negative - non user G8420 BMI documented within normal parameters - no follow-up plan is required G8783 Blood pressure within normal parameters - no follow-up required 1006F Osteoarthritis symptoms and functional status assessed [facility]-[id number] Patient Encounter Medications Administered No information available. Immunizations No information available. Advance Directives There may be information available, but it has not been provided by the sender. Assessments There may be information available, but it has not been provided by the sender. Review of Systems There may be information available, but it has not been provided by the sender. Family History There may be information available, but it has not been provided by the sender. History of Past Illness There may be information available, but it has not been provided by the sender. History of Present Illness There may be information available, but it has not been provided by the sender.
== END ==
PROVIDERS: Referring Provider Internal Medicine Endocrinology, Diabetes & Metabolism; Visit Provider Internal Medicine Endocrinology, Diabetes & Metabolism
DX: E03.8 Other specified hypothyroidism (principal); E55.9 Vitamin D deficiency, unspecified; D51.3 Other dietary vitamin B12 deficiency anemia
CPT/HCPCS: 36415; 80053; 82306; 82607; 83735; 84443

== ENCOUNTER → 2019-01-02 10:00 | Outpatient (CLI) | payer MEDICARE, OTHER, SELFPAY ==
[2019-01-02 12:41] LABS: AST(SGOT) 21 U/L (15-37); Alanine Aminotransfer ALT/SGPT 51 U/L (16-61)
== END ==
PROVIDERS: Referring Provider Nurse Practitioner Adult Health; Visit Provider Nurse Practitioner Adult Health
DX: R94.5 Abnormal results of liver function studies (principal)
CPT/HCPCS: 36415; 84450; 84460

== ENCOUNTER → 2019-06-16 | Outpatient (CLI) | payer MEDICARE, OTHER, SELFPAY ==
[2019-06-16 11:18] LABS: ALB/GLOB Ratio 1.3 RATIO (0.9-2.4); AST(SGOT) 26 U/L (15-37); Alanine Aminotransfer ALT/SGPT 48 U/L (16-61); Alkaline Phosphatase 67 U/L (45-117); Anion Gap 5 (5-15); BUN 23 mg/dL (7-18); BUN/Creat Ratio 20.2 RATIO (10-20); Calcium,Total 9.1 mg/dL (8.5-10.1); Chloride 105 mmol/L (98-107); Cholesterol 153 mg/dL (200); Creatinine, Serum 1.14 mg/dL (0.70-1.30); EST Glomerular Filtration Rate 68 mL/min (>60); Est Glom Filt Rate - Afr Amer 82 mL/min (>60); Glucose 106 mg/dL (74-106); High Density Lipoprotein 53 mg/dL; Potassium 4.2 mmol/L (3.5-5.1); Sodium Level 139 mmol/L (136-145); Thyroid Stim Hormone (TSH) 2.33 uIU/mL (0.358-3.74); Triglycerides 76 mg/dL; Very Low Density Lipoprotein 15 mg/dL (5-40)
[2019-06-16 22:05] LABS: Vitamin D,25 Hydroxy 39.9 ng/mL (29.95-100.01)
== END | disposition home or self-care (01) ==
LOC: MTLAB 09:10
PROVIDERS: Referring Provider Internal Medicine Endocrinology, Diabetes & Metabolism; Visit Provider Internal Medicine Endocrinology, Diabetes & Metabolism
DX: E03.8 Other specified hypothyroidism (principal); E55.9 Vitamin D deficiency, unspecified; E78.2 Mixed hyperlipidemia
CPT/HCPCS: 36415; 80053; 80061; 82306; 84443

== ENCOUNTER → 2020-01-19 09:14 | Outpatient (CLI) | payer MEDICARE, OTHER, SELFPAY ==
[2020-01-19 13:07] LABS: ALB/GLOB Ratio 1.3 RATIO (0.9-2.4); AST(SGOT) 26 U/L (15-37); Alanine Aminotransfer ALT/SGPT 54 U/L (16-61); Alkaline Phosphatase 66 U/L (45-117); Anion Gap 6 (5-15); BUN 24 mg/dL (7-18); BUN/Creat Ratio 21.1 RATIO (10-20); Chloride 104 mmol/L (98-107); Creatinine, Serum 1.14 mg/dL (0.70-1.30); EST Glomerular Filtration Rate 68 mL/min (>60); Est Glom Filt Rate - Afr Amer 82 mL/min (>60); Globulin 3.1 g/dL (2.2-4.2); Glucose 113 mg/dL (74-106); Potassium 3.9 mmol/L (3.5-5.1); Protein, Total 7.1 g/dL (6.4-8.2); Sodium Level 141 mmol/L (136-145); Thyroid Stim Hormone (TSH) 2.25 uIU/mL (0.358-3.74)
== END ==
PROVIDERS: Referring Provider Internal Medicine Endocrinology, Diabetes & Metabolism; Visit Provider Internal Medicine Endocrinology, Diabetes & Metabolism
DX: E03.8 Other specified hypothyroidism (principal)
CPT/HCPCS: 36415; 80053; 84443

== ENCOUNTER → 2020-08-19 07:27 | Outpatient (CLI) | payer MEDICARE, OTHER, SELFPAY ==
[2020-08-19 10:14] LABS: ALB/GLOB Ratio 1.3 RATIO (0.9-2.4); AST(SGOT) 28 U/L (15-37); Alanine Aminotransfer ALT/SGPT 53 U/L (16-61); Alkaline Phosphatase 69 U/L (45-117); Anion Gap 5 (5-15); BUN 20 mg/dL (7-18); BUN/Creat Ratio 17.7 RATIO (10-20); Calcium,Total 9.2 mg/dL (8.5-10.1); Chloride 103 mmol/L (98-107); Cholesterol 142 mg/dL (200); Creatinine, Serum 1.13 mg/dL (0.70-1.30); EST Glomerular Filtration Rate 69 mL/min (>60); Est Glom Filt Rate - Afr Amer 83 mL/min (>60); Globulin 3.1 g/dL (2.2-4.2); Glucose 111 mg/dL (74-106); High Density Lipoprotein 55 mg/dL; Potassium 3.7 mmol/L (3.5-5.1); Protein, Total 7.1 g/dL (6.4-8.2); Sodium Level 139 mmol/L (136-145); Thyroid Stim Hormone (TSH) 1.05 uIU/mL (0.358-3.74); Triglycerides 84 mg/dL; Very Low Density Lipoprotein 17 mg/dL (5-40)
== END ==
PROVIDERS: Referring Provider Internal Medicine Endocrinology, Diabetes & Metabolism; Visit Provider Internal Medicine Endocrinology, Diabetes & Metabolism
DX: E03.8 Other specified hypothyroidism (principal); E78.2 Mixed hyperlipidemia
CPT/HCPCS: 36415; 80053; 80061; 84443

== ENCOUNTER → 2021-03-08 15:23 | Outpatient (CLI) | payer MEDICARE, SELFPAY ==
[2021-03-08 19:11] LABS: ALB/GLOB Ratio 1.5 RATIO (0.9-2.4); AST(SGOT) 31 U/L (15-37); Alanine Aminotransfer ALT/SGPT 48 U/L (16-61); Albumin, Serum 4.3 g/dL (3.2-5.0); Alkaline Phosphatase 75 U/L (45-117); Anion Gap 5 (5-15); BUN 25 mg/dL (7-18); BUN/Creat Ratio 21.9 RATIO (10-20); Calcium,Total 9.6 mg/dL (8.5-10.1); Chloride 102 mmol/L (98-107); Creatinine, Serum 1.14 mg/dL (0.70-1.30); EST Glomerular Filtration Rate 68 mL/min (>60); Est Glom Filt Rate - Afr Amer 82 mL/min (>60); Globulin 2.9 g/dL (2.2-4.2); Glucose 112 mg/dL (74-106); Potassium 4.3 mmol/L (3.5-5.1); Protein, Total 7.2 g/dL (6.4-8.2); Sodium Level 136 mmol/L (136-145); Thyroid Stim Hormone (TSH) 4.96 uIU/mL (0.358-3.74)
== END ==
PROVIDERS: PCP Internal Medicine Endocrinology, Diabetes & Metabolism; Referring Provider Internal Medicine Endocrinology, Diabetes & Metabolism; Visit Provider Internal Medicine Endocrinology, Diabetes & Metabolism
DX: E03.8 Other specified hypothyroidism (principal); E83.42 Hypomagnesemia
CPT/HCPCS: 36415; 80053; 83735; 84443

== ENCOUNTER → 2021-06-02 09:03 | Outpatient (CLI) | payer MEDICARE, OTHER, SELFPAY ==
[2021-06-02 10:20] LABS: Hemoglobin A1c 5.9 % (3.8-5.6)
[2021-06-02 10:36] LABS: ALB/GLOB Ratio 1.3 RATIO (0.9-2.4); AST(SGOT) 30 U/L (15-37); Alanine Aminotransfer ALT/SGPT 53 U/L (16-61); Albumin, Serum 3.8 g/dL (3.2-5.0); Alkaline Phosphatase 68 U/L (45-117); Anion Gap 3 (5-15); BUN 20 mg/dL (7-18); BUN/Creat Ratio 18.3 RATIO (10-20); Calcium,Total 8.5 mg/dL (8.5-10.1); Chloride 107 mmol/L (98-107); Creatinine, Serum 1.09 mg/dL (0.70-1.30); EST Glomerular Filtration Rate 71 mL/min (>60); Est Glom Filt Rate - Afr Amer 86 mL/min (>60); Globulin 2.9 g/dL (2.2-4.2); Glucose 98 mg/dL (74-106); Potassium 4.1 mmol/L (3.5-5.1); Protein, Total 6.7 g/dL (6.4-8.2); Sodium Level 141 mmol/L (136-145); Thyroid Stim Hormone (TSH) 2.43 uIU/mL (0.358-3.74)
== END ==
PROVIDERS: PCP Family Medicine; Referring Provider Family Medicine; Visit Provider Family Medicine
DX: E11.9 Type 2 diabetes mellitus without complications (principal); E03.9 Hypothyroidism, unspecified
CPT/HCPCS: 36415; 80053; 83036; 84443

== ENCOUNTER 2024-01-07 08:43 | Outpatient (RCR) | payer MEDICARE, OTHER, SELFPAY ==
--- NOTE | 2024-01-07 18:16 | HP.SP.EV_ITS ---
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 Pt was referred by his doctor due to complains of throat clearing and swallowing difficulty. Pt lost 20-25 lbs in the last 8 months. Pt had an ulcer in his 20's and had 40% of his stomach removed. Pt has been drinking well water with a filtration system which may have been effecting his medication. Pt's medication for his thyroid has been changing doses often in the last year due to off numbers. Pt also has been more active. Other Relevant Medical History/Diagnoses/Surgery: Throat cancer in 2007 - operation to remove cancer - then there was a graft from the leg placed first at the [facility]. Then pt had chemo (2 doses) & radiation (20-21 doses) to treat the remaining cancer. Pt now has periodic chest xrays to check for cancer coming back. Throat clearing frequently throughout the day. Pt has limited salvia glands & often coughs off mucus. Pt will sometimes lose his voice or get a hoarse voice. Medications related to this diagnosis: metformin (750), Levothryxin, and atorvastatn (20mg). Smoking Status: Never smoker Diagnosis Diagnosis: oropharyngeal dysphagia Pain Is pain an issue with your current prescribed condition?: No Personal Preferred language: French Patient Allergies Allergies Allergies: Allergies No Known Allergies Allergy (Verified 10/24/21 14:57) Objective Dysphagia Thin Liquids Administred via: Cup and Straw Oral Transit: Delay > 5 seconds Bolus clearance: fully cleared Gagging: No Cough: immediate, delayed and throat clear Pharyngeal phase: laryngeal elevation mildly restricted slow initiation Pureed Administered via: Spoon Oral Preparation: WNL Oral Transit: WNL Bolus clearance: fully cleared Cough: weak reflexive cough and throat clear Pharyngeal phase: laryngeal elevation mildly restricted slow initiation Soft & Bite sized (Mechanical) Administered via: Spoon Oral Preparation: minimal chew thrust gravity assisted Oral Transit: Delay > 5 seconds Bolus clearance: some clearance/residue Gagging: No Cough: throat clear Pharyngeal phase: laryngeal elevation mildly restricted slow initiation Regular Oral Preparation: minimal chew thrust gravity assisted Oral Transit: Delay > 5 seconds Bolus clearance: significant clearance/minimal residue Gagging: No Cough: weak reflexive cough and throat clear Pharyngeal phase: laryngeal elevation mildly restricted slow initiation Swallowing Impairment Contributing Factors to Swallowing Impairment: Mastication Inefficiency, Impaired Oral-Pharyngeal Transport and Reduced Laryngeal Excursion Impact Impact on Safety & Functioning: Risk for Aspiration and Risk for Inadequate Nutrition/Hydration Comments: Pt complaints include; - food chunks left in mouth at the end of the night. - Pt feels like things go the wrong way often. - Pt with frequent throat clearing after his meal. Dentition and Oral Care; - x2 a day brushing teeth. - Pt had his top teeth replaced about 5 years ago with implants. Recommendations Modified Barium Swallow/Cookie Swallow Recommended: No Swallowing Treatment: Yes Diet Texture Recommendations Solids: Regular (Level 7) Liquids: Thin (Level 0) Other: ST recommends a FEES assessment to objectively assess swallow function. Safety Saftey Precautions/Swallowing Recommendations (Check all that Apply): Reduce Distractions, Small Sips & Bites when Eating and Alternate Liquids & Solids Other: Hardened cartilage in neck noted Pt with multiple swallows for each sip of thin. Results Swallowing Within Normal Limits: No Swallowing Diagnosis: Oropharyngeal Phase Dysphagia (R13.12) Swallowing Performance Scale Swallowing Performance Scale Swallowing Performance Scale Result: 5 Moderate Reference: Neuro-QoL instrument Radiation Oncology Patient Plan Plan Plan: Will rx Pt for skilled outpatient tx to address deficits in oropharyngeal dysphagia. An instrumental evaluation (i.e.. FEES or MBSS) is required to rule o ut aspiration and determine an appropriate diet level secondary to s/s of aspiration observed during the evaluation. Pt would benefit from training and education re: diet tolerance checks, compensatory strategies and swallowing exercises to aid in oropharyngeal strengthening and reduce the subsequent risk of aspiration. Without skilled intervention, Pt is at risk for consuming a restrictive diet putting her at risk for aspiration pneumonia and atrophy of laryngeal musculature. Recommendations MBS: No Treatment Warranted: Yes Treatment Warranted: Dysphagia Comment: A FEES will be conducted to rule out aspiration and determine an appropriate diet level secondary to s/s of aspiration observed during the evaluation. Progress Prognosis: Excellent Frequency Frequency: 1x/Week Additional (Frequency): Will determine POC after FEES Duration: 2-4 Months Goals that are Established Determination:: Goals will be added/modified as deemed necessary and appropriate. Therapy will be discontinued when results of re-evaluation indicate therapy is no longer needed or lack of progress has been documented. Goal #1-5 Goal #1: Pt will participate in a FEES study to objectively assess Pt?s oropharyngeal swallow function to determine the least restrictive means of nutrition and progress from participating in pharyngeal strengthening exercises. Goal #2: Pt will utilize compensatory strategies (small sips & bites, reduced distractions, alternate sips & bites, upright after meals for 30 mins) and tolerate least restrictive diet with no overt s/s of aspiration/penetration to aid in safe consumption of solid/liquids independently during bolus trials given up to min cues during measured sessions. Education Patient has Indicated that the Following Identified Educational Needs: None The Patient has indicated that they have no educational or learning abilities that may effect their care.: Yes Patient Instruction Patient Education: Diagnosis, Treatment Plan and Goals Person Taught: Patient Teaching Method: Discussion Response to teaching: Verbalize understanding
== END 2024-01-07 19:00 | disposition home or self-care (01) ==
LOC: SP 08:43
PROVIDERS: PCP Family Medicine; Referring Provider Internal Medicine; Visit Provider Internal Medicine
DX: R13.12 Dysphagia, oropharyngeal phase
CPT/HCPCS: 92610